=== PATIENT | female | born 1995 | race Caucasian/White ===

== ENCOUNTER 2017-11-27 15:40 | Emergency (ER) | payer SELFPAY ==
[2017-11-27 16:21] VITALS: BP 142/72
--- NOTE | 2017-11-27 17:03 | ED ---
Lower Extremity - HPI Summary HPI Summary: 22 yr old with left knee pain. She was walking yesterday when walking and slipped on the ice. Landed on her left knee. Hurts to stand and bear weight, but she has been walking all day, and she worked at [employer] today all day. Pain, 04/12 - History of Current Complaint Chief Complaint: UCLowerExtremity Stated Complaint: LEFT KNEE INJURY Time Seen by Provider: 11/27/17 16:23 Hx Last Menstrual Period: DEPO Pain Intensity: 6 - Allergies/Home Medications Allergies/Adverse Reactions: Allergies Allergy/AdvReac Type Severity Reaction Status Date / Time No Known Allergies Allergy Verified 11/27/17 16:15 PMH/Surg Hx/FS Hx/Imm Hx - Surgical History Hx Anesthesia Reactions: No Infectious Disease History: No Infectious Disease History: Denies: Traveled Outside the [place] in Last 30 Days - Family History Known Family History: Positive: None - Social History Alcohol Use: Occasionally Substance Use Type: Reports: None Smoking Status (MU): Current Every Day Smoker Type: eCigarettes Length of Time of Smoking/Using Tobacco: 3 YRS Review of Systems Constitutional: Negative Positive: Other - left knee pain All Other Systems Reviewed And Are Negative: Yes Physical Exam Triage Information Reviewed: Yes Vital Signs On Initial Exam: Initial Vitals Temp Pulse Resp BP Pulse Ox 99.9 F 74 16 142/72 100 11/27/17 16:16 11/27/17 16:16 11/27/17 16:16 11/27/17 16:16 11/27/17 16:16 Vital Signs Reviewed: Yes Appearance: Positive: Well-Appearing, No Pain Distress Skin: Positive: Warm, Skin Color Reflects Adequate Perfusion Head/Face: Positive: Normal Head/Face Inspection Eyes: Positive: EOMI Neck: Positive: Nontender Respiratory/Lung Sounds: Positive: Clear to Auscultation, Breath Sounds Present Cardiovascular: Positive: Pulses are Symmetrical in both Upper and Lower Extremities Musculoskeletal: Positive: Other - no tenderness over the patellar tendon left knee. She has tenderness over the left patella. She is able to straighten the left leg and is not weak in the quadracep muscle. Neurological: Positive: Sensory/Motor Intact, Alert, Oriented to Person Place, Time, CN Intact II-III Psychiatric: Positive: Normal - Laura Coma Scale Best Eye Response: 4 - Spontaneous Best Motor Response: 6 - Obeys Commands Best Verbal Response: 5 - Oriented Coma Scale Total: 15 Diagnostics - Vital Signs Vital Signs Temp Pulse Resp BP Pulse Ox 11/27/17 16:16 99.9 F 74 16 142/72 100 - Laboratory Lab Results: Lab Results 11/27/17 Range/Units 16:32 POC Ur Test Negative (Negative) Lab Statement: Any lab studies that have been ordered have been reviewed, and results considered in the medical decision making process. - Radiology left knee Xray Interpretation: No Acute Changes Radiology Interpretation Completed By: Radiologist - final report reviewed. Lower Extremity Course/Dx - Course Course Of Treatment: 22 yr old with knee sprain. Xray Neg. DC home. - Diagnoses Provider Diagnoses: Knee sprain Discharge - Discharge Plan Condition: Good Disposition: HOME Prescriptions: Ibuprofen TAB* [Motrin TAB* 600 MG] 600 mg PO Q8H PRN #14 tab PRN Reason: Pain Patient Education Materials: Knee Sprain (ED), Hypertension (ED) Forms: *Work Release Referrals: [facility] [Outside] Ryan Shane MD [Medical Doctor] - No Primary Care Phys,NOPCP [Primary Care Provider] - 2 Days
--- NOTE | 2017-11-27 17:47 | RAD ---
Indication: Left knee injury. 4 views of left knee demonstrates no fracture. No other bone or joint abnormality is identified. IMPRESSION: No fracture of the left knee is noted.
== END 2017-11-27 18:00 | disposition home or self-care (01) ==
LOC: UCCORT 15:40
DX: S83.92XA Sprain of unspecified site of left knee, initial encounter (principal); W00.0XXA Fall on same level due to ice and snow, initial encounter; Y93.01 Activity, walking, marching and hiking; Y92.9 Unspecified place or not applicable; Z32.02 Encounter for pregnancy test, result negative; F17.210 Nicotine dependence, cigarettes, uncomplicated
CPT/HCPCS: 84702; 99202; G0463